=== PATIENT | male | born 1955 | race Caucasian/White ===

== ENCOUNTER 2017-04-28 10:45 | Inpatient (IN) | payer MEDICAID, OTHER ==
[~2017-04-28] VITALS: Ht 180.3 cm; Wt 96.7 kg
[2017-04-28 11:31] LABS: Basophils # (auto) 0.1 uL; Basophils % (auto) 0.4 % (0.0-2.0); Eosinophils # (auto) 0.2 uL; Eosinophils % (auto) 1.2 % (0.0-7.0); Hematocrit 41.5 % (41.0-53.0); Hemoglobin 13.8 g/dL (13.5-17.5); Lymphocytes # (auto) 1.8 uL; Lymphocytes % (auto) 12.6 % (10.0-50.0); Mean Corpuscular Hemoglobin 28.6 pg (28.0-32.0); Mean Corpuscular Hgb Conc. 33.3 g/dL (32.0-36.0); Mean Corpuscular Volume 85.9 fL (80.0-100.0); Monocytes # (auto) 1.2 uL; Monocytes % (auto) 8.2 % (0.0-12.0); Neutrophils # (auto) 10.8 uL; Neutrophils % (auto) 77.6 % (37.0-80.0); Platelet Count (auto) 268 10^3/uL (140-450); Red Blood Cells 4.83 10^6/uL (4.5-5.90); Red Cell Distribution Width 14.8 % (11.8-14.3)
[2017-04-28 11:54] LABS: Albumin 3.6 g/dL (3.4-5.0); BUN/Creatinine Ratio 21.3; Bilirubin, Total 0.8 mg/dL (0.2-1.0); Potassium 3.8 mmol/L (3.5-5.1); Total Protein 7.7 g/dL (6.4-8.2)
[2017-04-28 12:23] LABS: INR 0.95 (0.9-1.15); Partial Thromboplastin Time 29.4 sec (22.64-33.71); Prothrombin Time 10.4 sec (9.37-12.3)
[2017-04-28 12:24] LABS: Magnesium 2.4 mg/dL (1.6-2.6)
[2017-04-28] MEDS ORDERED: cefTRIAXone 1GM/10ml IVPUSH 10 ML IV ONE (12:45)
[2017-04-28] MEDS ORDERED: MORPHINE SULFATE 10 MG/ML INJ 1ML SDV IV PRN ×2 (13:00)
[2017-04-28] MEDS ORDERED: OSELTAMIVIR 75 MG CAP PO ONE (13:00)
[2017-04-28] MEDS ORDERED: ALBUTEROL SULF 2.5 MG/0.5ML(0.5%) NEB SOLN NEB PRN (13:00)
[2017-04-28] MEDS ORDERED: LORazepam 0.5 MG TAB PO PRN (13:00)
[2017-04-28] MEDS ORDERED: ACETAMINOPHEN 500 MG TAB PO PRN (13:00)
[2017-04-28] MEDS ORDERED: ONDANSETRON HCL 4 MG/2 ML VIAL IV ONE (13:00)
[2017-04-28] MEDS ORDERED: TEMAZEPAM 15 MG CAP PO PRN (13:00)
[2017-04-28] MEDS ORDERED: HYDROcodone-ACET 5/325MG TAB PO PRN (13:00)
[2017-04-28] MEDS ORDERED: MORPHINE SULFATE 10 MG/ML INJ 1ML SDV IV ONE (13:00)
[2017-04-28] MEDS ORDERED: NITROGLYCERIN 0.4 MG SL TAB SL PRN (13:00)
[2017-04-28] MEDS ORDERED: ASPirin 81 mg TAB PO ONE ×2 (13:00→13:30)
[2017-04-28] MEDS ORDERED: DEXTROSE (50%) 50ML SYRG IV PRN (13:00)
[2017-04-28] MEDS ORDERED: PROMETHAZINE HCL 25 MG/ML 1ML IV PRN (13:00)
[2017-04-28] MEDS ORDERED: LACTULOSE 20Gm/30ML SOLN PO PRN (13:00)
[2017-04-28] MEDS ORDERED: ENOXAPARIN SOD 40 MG/0.4 ML SYRINGE SC ONE (13:30)
[2017-04-28] MEDS ORDERED: NITROGLYCERIN 0.2MG/HR TOPICAL PATCH TD ONE (13:30)
[2017-04-28] MEDS ORDERED: CARVEDILOL 3.125 MG TAB PO ONE (13:30)
[2017-04-28] MEDS ORDERED: ENALAPRIL MALEATE 2.5 MG TAB PO ONE (13:30)
[2017-04-28] MEDS ORDERED: POTASSIUM CHL 20 Meq TABLET PO ONE (13:30)
[2017-04-28] MEDS ORDERED: FUROSEMIDE 40 MG/4 ML VIAL IV ONE (13:30)
[2017-04-28] MEDS: SODIUM CHLOR 0.9% PF (SALINE LOCK) 10ML VIAL IV SCH ×2 (14:00→22:18)
[2017-04-28] MEDS: ACCU-CHEK COMFORT CURVE STRIP VI SCH ×2 (16:34→22:16)
[2017-04-28] MEDS: InsuLIN REG 1unit/0.01ml Soln (100units/ml) SC SCH ×2 (16:35→22:16)
[2017-04-28] MEDS: ALBUTEROL SULF 2.5 MG/0.5ML(0.5%) NEB SOLN NEB SCH (18:25)
[2017-04-28] MEDS ORDERED: OSELTAMIVIR 75 MG CAP PO SCH (22:00)
[2017-04-28] MEDS: ATORVASTATIN 20 MG TAB PO SCH (22:16)
[2017-04-28] MEDS: POTASSIUM CHL 20 Meq TABLET PO SCH (22:16)
[2017-04-28] MEDS: CARVEDILOL 3.125 MG TAB PO SCH (22:17)
[2017-04-28] MEDS: FUROSEMIDE 40 MG/4 ML VIAL IV SCH (22:18)
[2017-04-29 02:32] VITALS: BP 125/79
[2017-04-29] MEDS: InsuLIN REG 1unit/0.01ml Soln (100units/ml) SC SCH ×4 (06:26→22:00)
[2017-04-29] MEDS: ACCU-CHEK COMFORT CURVE STRIP VI SCH ×4 (06:27→22:00)
[2017-04-29] MEDS: ALBUTEROL SULF 2.5 MG/0.5ML(0.5%) NEB SOLN NEB SCH ×3 (06:31→19:05)
[2017-04-29 06:33] LABS: Basophils # (auto) 0.1 uL; Basophils % (auto) 0.7 % (0.0-2.0); Eosinophils # (auto) 0.2 uL; Eosinophils % (auto) 1.7 % (0.0-7.0); Hematocrit 38.7 % (41.0-53.0); Hemoglobin 12.9 g/dL (13.5-17.5); Lymphocytes # (auto) 2.8 uL; Lymphocytes % (auto) 22.1 % (10.0-50.0); Mean Corpuscular Hemoglobin 28.9 pg (28.0-32.0); Mean Corpuscular Hgb Conc. 33.4 g/dL (32.0-36.0); Mean Corpuscular Volume 86.5 fL (80.0-100.0); Monocytes # (auto) 1.3 uL; Monocytes % (auto) 10.2 % (0.0-12.0); Neutrophils # (auto) 8.4 uL; Neutrophils % (auto) 65.3 % (37.0-80.0); Nucleated Red Blood Cells % 0.1 %; Platelet Count (auto) 253 10^3/uL (140-450); Red Blood Cells 4.48 10^6/uL (4.5-5.90); Red Cell Distribution Width 14.8 % (11.8-14.3); White Blood Cell 12.9 10^3/uL (4.4-10.8)
[2017-04-29 07:03] LABS: Albumin 3.1 g/dL (3.4-5.0); BUN/Creatinine Ratio 17.1; Calcium 8.3 mg/dL (8.5-10.1); Potassium 3.9 mmol/L (3.5-5.1); Total Protein 7.1 g/dL (6.4-8.2)
[2017-04-29] MEDS: CARVEDILOL 3.125 MG TAB PO SCH ×2 (09:58→22:00)
[2017-04-29] MEDS: ENALAPRIL MALEATE 2.5 MG TAB PO SCH (09:58)
[2017-04-29] MEDS ORDERED: ASPirin 81 mg TAB PO SCH (10:00)
[2017-04-29] MEDS ORDERED: NITROGLYCERIN 0.2MG/HR TOPICAL PATCH TD SCH (10:00)
[2017-04-29] MEDS: ENOXAPARIN SOD 40 MG/0.4 ML SYRINGE SC SCH (10:03)
[2017-04-29] MEDS: POTASSIUM CHL 20 Meq TABLET PO SCH ×2 (10:03→22:00)
[2017-04-29] MEDS: SODIUM CHLOR 0.9% PF (SALINE LOCK) 10ML VIAL IV SCH ×3 (10:03→22:00)
[2017-04-29] MEDS: ASPirin 81 mg TAB PO SCH (10:03)
[2017-04-29] MEDS: cefTRIAXone 1GM/10ml IVPUSH 10 ML IV SCH (10:04)
[2017-04-29] MEDS: FUROSEMIDE 40 MG/4 ML VIAL IV SCH ×2 (10:04→22:00)
[2017-04-29] MEDS: AZITHROMYCIN 500MG/ 250ML 250 ML IV SCH (10:12)
[2017-04-29 11:41] LABS: Urine Bacteria NONE SEEN /hpf (None Seen); Urine Blood TRACE /uL (Negative); Urine Specific Gravity 1.009 (1.001-1.035); Urine WBC <1 /hpf (0 - 3)
[2017-04-29 12:12] LABS: Alcohol, Urine < 3.0 mg/dL (0-5); Amphetamine Screen, Urine NEGATIVE (NEGATIVE); Barbiturate Scree,Urine NEGATIVE (NEGATIVE); Benzodiazephine Screen, Urine NEGATIVE (NEGATIVE); Cannabinoid Screen, Urine NEGATIVE (NEGATIVE); Cocaine Screen, Urine NEGATIVE (NEGATIVE); Opiate Scree,Urine NEGATIVE (NEGATIVE); Phencyclidine Screen, Urine NEGATIVE (NEGATIVE)
[2017-04-29] MEDS: ATORVASTATIN 20 MG TAB PO SCH (22:00)
[2017-04-30] MEDS: ALBUTEROL SULF 2.5 MG/0.5ML(0.5%) NEB SOLN NEB SCH ×4 (00:31→19:26)
[2017-04-30 03:43] LABS: Basophils # (auto) 0.2 uL; Basophils % (auto) 1.8 % (0.0-2.0); Eosinophils # (auto) 0.3 uL; Hematocrit 39.6 % (41.0-53.0); Hemoglobin 13.3 g/dL (13.5-17.5); Lymphocytes # (auto) 1.9 uL; Lymphocytes % (auto) 17.7 % (10.0-50.0); Mean Corpuscular Hemoglobin 28.9 pg (28.0-32.0); Mean Corpuscular Hgb Conc. 33.7 g/dL (32.0-36.0); Mean Corpuscular Volume 85.8 fL (80.0-100.0); Monocytes # (auto) 0.9 uL; Monocytes % (auto) 8.6 % (0.0-12.0); Neutrophils # (auto) 7.5 uL; Neutrophils % (auto) 68.9 % (37.0-80.0); Nucleated Red Blood Cells % 0.1 %; Platelet Count (auto) 256 10^3/uL (140-450); Red Blood Cells 4.61 10^6/uL (4.5-5.90); Red Cell Distribution Width 15.2 % (11.8-14.3); White Blood Cell 10.9 10^3/uL (4.4-10.8)
[2017-04-30 03:57] LABS: BUN/Creatinine Ratio 20.7; Calcium 8.5 mg/dL (8.5-10.1); Magnesium 2.3 mg/dL (1.6-2.6); Potassium 3.9 mmol/L (3.5-5.1)
[2017-04-30] MEDS: SODIUM CHLOR 0.9% PF (SALINE LOCK) 10ML VIAL IV SCH ×3 (06:00→22:00)
[2017-04-30] MEDS: InsuLIN REG 1unit/0.01ml Soln (100units/ml) SC SCH ×4 (07:00→22:00)
[2017-04-30] MEDS: ACCU-CHEK COMFORT CURVE STRIP VI SCH ×4 (07:14→22:00)
[2017-04-30 08:24] VITALS: BP 129/80
[2017-04-30] MEDS ORDERED: INFLUENZA QUAD 2017-2018 0.5 ML SYRG IM ONE (08:45)
[2017-04-30] MEDS ORDERED: PNEUMOCOCCAL VACC POLYS 25 MCG/0.5 ML VIAL IM ONE (08:45)
[2017-04-30] MEDS ORDERED: LISI40TA PO (08:47)
[2017-04-30] MEDS ORDERED: GABA300C10 PO (08:47)
[2017-04-30] MEDS ORDERED: METF-370 PO (08:47)
[2017-04-30] MEDS ORDERED: ASPI81TA27 PO (08:47)
[2017-04-30 09:00] VITALS: BP 129/81
[2017-04-30] MEDS: FUROSEMIDE 40 MG/4 ML VIAL IV SCH ×2 (10:08→23:21)
[2017-04-30] MEDS: cefTRIAXone 1GM/10ml IVPUSH 10 ML IV SCH (10:08)
[2017-04-30] MEDS: CARVEDILOL 3.125 MG TAB PO SCH ×2 (10:09→23:22)
[2017-04-30] MEDS: AZITHROMYCIN 500MG/ 250ML 250 ML IV SCH (10:09)
[2017-04-30] MEDS: POTASSIUM CHL 20 Meq TABLET PO SCH ×2 (10:09→23:21)
[2017-04-30] MEDS: ASPirin 81 mg TAB PO SCH (10:09)
[2017-04-30] MEDS: ENOXAPARIN SOD 40 MG/0.4 ML SYRINGE SC SCH (10:10)
[2017-04-30] MEDS: ENALAPRIL MALEATE 2.5 MG TAB PO SCH (10:10)
[2017-04-30 13:00] VITALS: BP 107/54
[2017-04-30] MEDS ORDERED: ADENOSINE 93 MG in GIVE UN-DILUTED 0 ML IV ONE (13:15)
[2017-04-30] MEDS ORDERED: ATOR20TA PO (13:16)
[2017-04-30 13:36] VITALS: BP 106/70
[2017-04-30 17:00] VITALS: BP 102/50
[2017-04-30] MEDS: ATORVASTATIN 20 MG TAB PO SCH (22:00)
[2017-04-30 22:24] VITALS: BP 123/56
[2017-05-01] MEDS: ALBUTEROL SULF 2.5 MG/0.5ML(0.5%) NEB SOLN NEB SCH ×5 (01:08→22:58)
[2017-05-01] MEDS ORDERED: ALBUTEROL SULF 2.5 MG/0.5ML(0.5%) NEB SOLN NEB PRN (03:15)
[2017-05-01 05:27] VITALS: BP 125/60
[2017-05-01] MEDS: ACCU-CHEK COMFORT CURVE STRIP VI SCH ×4 (06:29→22:00)
[2017-05-01] MEDS: SODIUM CHLOR 0.9% PF (SALINE LOCK) 10ML VIAL IV SCH ×3 (06:29→22:00)
[2017-05-01] MEDS: IPRATROPIUM BROM 0.5 MG/2.5ML INH SOL NEB SCH ×4 (06:38→22:57)
[2017-05-01] MEDS: InsuLIN REG 1unit/0.01ml Soln (100units/ml) SC SCH ×4 (06:52→22:00)
[2017-05-01 07:15] LABS: Basophils # (auto) 0.1 uL; Basophils % (auto) 0.6 % (0.0-2.0); Eosinophils # (auto) 0.5 uL; Eosinophils % (auto) 3.6 % (0.0-7.0); Hematocrit 39.4 % (41.0-53.0); Hemoglobin 13.3 g/dL (13.5-17.5); Lymphocytes # (auto) 2.5 uL; Lymphocytes % (auto) 18.6 % (10.0-50.0); Mean Corpuscular Hgb Conc. 33.9 g/dL (32.0-36.0); Mean Corpuscular Volume 85.6 fL (80.0-100.0); Monocytes # (auto) 1.1 uL; Monocytes % (auto) 8.4 % (0.0-12.0); Neutrophils # (auto) 9.1 uL; Neutrophils % (auto) 68.8 % (37.0-80.0); Nucleated Red Blood Cells % 0.1 %; Platelet Count (auto) 300 10^3/uL (140-450); Red Cell Distribution Width 14.7 % (11.8-14.3); White Blood Cell 13.2 10^3/uL (4.4-10.8)
[2017-05-01 07:31] LABS: Potassium 4.3 mmol/L (3.5-5.1)
[2017-05-01 09:00] VITALS: BP 131/71
[2017-05-01] MEDS: CARVEDILOL 3.125 MG TAB PO SCH ×2 (09:14→23:15)
[2017-05-01] MEDS: FUROSEMIDE 40 MG/4 ML VIAL IV SCH ×2 (09:14→23:15)
[2017-05-01] MEDS: POTASSIUM CHL 20 Meq TABLET PO SCH ×2 (09:14→23:13)
[2017-05-01] MEDS: ASPirin 81 mg TAB PO SCH (09:15)
[2017-05-01] MEDS: cefTRIAXone 1GM/10ml IVPUSH 10 ML IV SCH (09:15)
[2017-05-01] MEDS: ENALAPRIL MALEATE 2.5 MG TAB PO SCH (09:15)
[2017-05-01] MEDS: AZITHROMYCIN 500MG/ 250ML 250 ML IV SCH (09:16)
[2017-05-01] MEDS: ENOXAPARIN SOD 40 MG/0.4 ML SYRINGE SC SCH (09:16)
[2017-05-01 13:00] VITALS: BP 118/64
[2017-05-01] MEDS: NICOTINE 21MG/24 HR TOPICAL PATCH TD SCH (16:33)
[2017-05-01 17:00] VITALS: BP 133/67
[2017-05-01 20:22] VITALS: BP 114/58
[2017-05-01 20:29] VITALS: BP 133/67
[2017-05-01] MEDS: ATORVASTATIN 20 MG TAB PO SCH (23:11)
[2017-05-02 05:47] VITALS: BP 103/45
[2017-05-02] MEDS: SODIUM CHLOR 0.9% PF (SALINE LOCK) 10ML VIAL IV SCH ×2 (06:00→13:19)
[2017-05-02] MEDS: IPRATROPIUM BROM 0.5 MG/2.5ML INH SOL NEB SCH ×2 (06:49→11:53)
[2017-05-02] MEDS: ALBUTEROL SULF 2.5 MG/0.5ML(0.5%) NEB SOLN NEB SCH ×2 (06:49→11:53)
[2017-05-02] MEDS: ACCU-CHEK COMFORT CURVE STRIP VI SCH ×3 (06:58→17:10)
[2017-05-02] MEDS: InsuLIN REG 1unit/0.01ml Soln (100units/ml) SC SCH ×3 (06:58→17:10)
[2017-05-02 09:00] VITALS: BP 127/52
[2017-05-02] MEDS: cefTRIAXone 1GM/10ml IVPUSH 10 ML IV SCH (09:36)
[2017-05-02] MEDS: ASPirin 81 mg TAB PO SCH (09:37)
[2017-05-02] MEDS: AZITHROMYCIN 500MG/ 250ML 250 ML IV SCH (09:37)
[2017-05-02] MEDS: FUROSEMIDE 40 MG/4 ML VIAL IV SCH (09:37)
[2017-05-02] MEDS: CARVEDILOL 3.125 MG TAB PO SCH (09:38)
[2017-05-02] MEDS: POTASSIUM CHL 20 Meq TABLET PO SCH (09:38)
[2017-05-02] MEDS: ENALAPRIL MALEATE 2.5 MG TAB PO SCH (09:39)
[2017-05-02] MEDS: ENOXAPARIN SOD 40 MG/0.4 ML SYRINGE SC SCH (09:39)
[2017-05-02] MEDS: NICOTINE 21MG/24 HR TOPICAL PATCH TD SCH (09:39)
[2017-05-02 13:00] VITALS: BP 100/53
[2017-05-02 17:00] VITALS: BP 112/53
== END 2017-05-02 18:40 | disposition home or self-care (01) | DRG 190 ==
LOC: ER 10:45 → TELE 10:46 → TELE-EAST 04-30 07:43
PROVIDERS: ADMIT Internal Medicine; ATTEND Internal Medicine
DX: I21.4 Non-ST elevation (NSTEMI) myocardial infarction (principal); J96.90 Respiratory failure, unspecified, unspecified whether with hypoxia or hypercapnia; I50.43 Acute on chronic combined systolic (congestive) and diastolic (congestive) heart failure; J18.1 Lobar pneumonia, unspecified organism; I11.0 Hypertensive heart disease with heart failure; E11.9 Type 2 diabetes mellitus without complications; J44.0 Chronic obstructive pulmonary disease with (acute) lower respiratory infection; G62.9 Polyneuropathy, unspecified; E78.5 Hyperlipidemia, unspecified; F15.10 Other stimulant abuse, uncomplicated; F17.210 Nicotine dependence, cigarettes, uncomplicated; I25.10 Atherosclerotic heart disease of native coronary artery without angina pectoris; J44.1 Chronic obstructive pulmonary disease with (acute) exacerbation; Z82.49 Family history of ischemic heart disease and other diseases of the circulatory system; Z23 Encounter for immunization
CPT/HCPCS: 36415; 71045; 78452; 80048; 80053; 80061; 80307; 81001; 82550; 82565; 82962; 83036; 83605; 83735; 83880; 84132; 84484; 85025; 85610; 85652; 85730; 86141; 87040; 87400; 93005; 93017; 93306; 94640; 94761; J0153; J1815; J2405

== ENCOUNTER 2021-08-09 11:11 | Observation (INO) | payer MEDICAID, OTHER ==
[~2021-08-09] VITALS: Ht 182.9 cm; Wt 103.6 kg
[~2021-08-09 11:11] MED LIST: AMIO200T33 PO; ASPI-543 PO; ATOR20TA PO; CEFA500C PO; CLIN300C8 PO; FURO1TAB31 PO; GABA300C10 PO; LEVO500T31 PO; LISI40TA11 PO; METO25TA5 PO; OXY5T PO; PANT40TA2 PO; SACC250C PO
[2021-08-09] MEDS ORDERED: ALPRAZolam 0.5 MG TAB PO ONE (12:15)
[2021-08-09 12:35] LABS: BUN/Creatinine Ratio 25.6; Calcium 8.4 mg/dL (8.5-10.1)
[2021-08-09 12:36] LABS: Basophils # (auto) 0 10 ^3/uL (0-0.2); Basophils % (auto) 0.2 % (0.0-2.0); Eosinophils # (auto) 0 10 ^3/uL (0-0.8); Eosinophils % (auto) 0.1 % (0.0-7.0); Hematocrit 38.1 % (41.0-53.0); Lymphocytes # (auto) 0.7 10 ^3/uL (0.4-5.4); Lymphocytes % (auto) 4.5 % (10.0-50.0); Mean Corpuscular Hemoglobin 29.2 pg (28.0-32.0); Mean Corpuscular Hgb Conc. 34.1 g/dL (32.0-36.0); Mean Corpuscular Volume 85.8 fL (80.0-100.0); Monocytes # (auto) 0.5 10 ^3/uL (0-1.3); Monocytes % (auto) 3.2 % (0.0-12.0); Neutrophils # (auto) 13.9 10 ^3/uL (1.6-8.6); Nucleated Red Blood Cells % 0.1 %; Red Blood Cells 4.44 10^6/uL (4.5-5.90); Red Cell Distribution Width 16.2 % (11.8-14.3); White Blood Cell 15.1 10^3/uL (4.4-10.8)
[2021-08-09 12:38] LABS: Bilirubin, Total 0.7 mg/dL (0.2-1.0); Total Protein 6.4 g/dL (6.4-8.2)
[2021-08-09] MEDS ORDERED: ASPirin 81 mg TAB PO ONE (13:15)
[2021-08-09] MEDS ORDERED: SODIUM CHLORIDE 0.9% 500 ML IV ONE (13:30)
[2021-08-09] MEDS ORDERED: SODIUM CHLORIDE 0.9% 1,000 ML IV ONE (13:30)
[2021-08-09 14:10] LABS: INR 0.99 (0.9-1.15)
[2021-08-09] MEDS ORDERED: FUROSEMIDE 40 MG/4 ML VIAL IV ONE (14:15)
[2021-08-09] MEDS ORDERED: NITROGLYCERIN 0.4 MG SL TAB SL PRN (16:15)
[2021-08-09] MEDS ORDERED: MORPHINE SULFATE INJ 2 MG/ml SYRG IV PRN (16:15)
[2021-08-09] MEDS ORDERED: DEXTROSE (50%) 50ML SYRG IV ONE (21:45)
[2021-08-09 22:00] VITALS: BP 125/64
[2021-08-09] MEDS ORDERED: GABAPENTIN 300 MG CAP PO SCH (22:00)
[2021-08-09] MEDS ORDERED: ATORVASTATIN 20 MG TAB PO SCH (22:00)
[2021-08-09 23:46] VITALS: BP 125/64
[2021-08-09] MEDS: APIXABAN 2.5 MG TAB PO SCH (23:48)
[2021-08-09] MEDS: AMIODARONE HCL 200 MG TAB PO SCH (23:48)
[2021-08-09] MEDS: METOPROLOL TARTRATE 25 MG TAB PO SCH (23:49)
[2021-08-09] MEDS: FUROSEMIDE 20 MG/2 ML VIAL IV SCH (23:49)
[2021-08-09] MEDS: ACCU-CHEK COMFORT CURVE STRIP VI SCH (23:50)
[2021-08-10] MEDS: InsuLIN REG 1unit/0.01ml Soln (100units/ml) SC SCH ×3 (00:11→11:21)
[2021-08-10] MEDS ORDERED: DEXTROSE (50%) 50ML SYRG IV PRN (00:15)
[2021-08-10] MEDS ORDERED: SEMA4INJ SC (00:24)
[2021-08-10] MEDS ORDERED: INSLANTI SC (00:24)
[2021-08-10] MEDS ORDERED: AMLO-489 PO (00:24)
[2021-08-10] MEDS ORDERED: CINN500C7 PO (00:24)
[2021-08-10] MEDS ORDERED: MILK150C PO (00:24)
[2021-08-10] MEDS ORDERED: EMPA1TAB PO (00:24)
[2021-08-10] MEDS ORDERED: ALPRAZolam 0.5 MG TAB PO PRN (02:45)
[2021-08-10] MEDS ORDERED: PROMETHAZINE W/CODEINE 5 ML ORAL SYRUP PO PRN (04:45)
[2021-08-10 05:00] VITALS: BP_SYST 110; BP_SYST 87; BP_DIAS 57; BP_DIAS 74
[2021-08-10 05:10] VITALS: BP 110/74
[2021-08-10 05:25] LABS: Hematocrit 36.2 % (41.0-53.0); Hemoglobin 12.2 g/dL (13.5-17.5); Mean Corpuscular Hemoglobin 29.2 pg (28.0-32.0); Mean Corpuscular Hgb Conc. 33.7 g/dL (32.0-36.0); Mean Corpuscular Volume 86.5 fL (80.0-100.0); Red Blood Cells 4.19 10^6/uL (4.5-5.90); Red Cell Distribution Width 16.2 % (11.8-14.3); White Blood Cell 15.5 10^3/uL (4.4-10.8)
[2021-08-10 05:44] LABS: Calcium 8.4 mg/dL (8.5-10.1); Potassium 4.4 mmol/L (3.5-5.1)
[2021-08-10] MEDS: ACCU-CHEK COMFORT CURVE STRIP VI SCH ×2 (06:41→11:21)
[2021-08-10 08:00] VITALS: BP 105/57
[2021-08-10 09:00] VITALS: BP 105/57
[2021-08-10] MEDS: FUROSEMIDE 20 MG/2 ML VIAL IV SCH (09:15)
[2021-08-10] MEDS: AMIODARONE HCL 200 MG TAB PO SCH (09:16)
[2021-08-10] MEDS: APIXABAN 2.5 MG TAB PO SCH (09:16)
[2021-08-10] MEDS: METOPROLOL TARTRATE 25 MG TAB PO SCH (09:18)
[2021-08-10] MEDS ORDERED: FLORASTOR (S. BOULARDII) 250 MG CAP PO SCH (10:00)
[2021-08-10] MEDS ORDERED: PANTOPRAZOLE 40 MG TAB PO SCH (10:00)
[2021-08-10] MEDS ORDERED: LISINOPRIL 20 MG TAB PO SCH (10:00)
[2021-08-10] MEDS ORDERED: ASPirin-EC 81 mg tab PO SCH (10:00)
[2021-08-10] MEDS ORDERED: FURO1TAB33 PO (10:58)
[2021-08-10] MEDS ORDERED: LISI20TA28 PO (11:00)
[2021-08-10] MEDS ORDERED: APIX2.5T PO (11:00)
[2021-08-10 12:45] VITALS: BP 105/57
== END 2021-08-10 13:40 | disposition home or self-care (01) ==
LOC: ER 11:11 → TELE 16:09 → TELE-CENTR 21:48
PROVIDERS: ADMIT Hospitalist; ATTEND Hospitalist
DX: I13.0 Hypertensive heart and chronic kidney disease with heart failure and stage 1 through stage 4 chronic kidney disease, or unspecified chronic kidney disease (principal); Z20.822 Contact with and (suspected) exposure to COVID-19; E11.22 Type 2 diabetes mellitus with diabetic chronic kidney disease; N18.31 Chronic kidney disease, stage 3a; I50.21 Acute systolic (congestive) heart failure; G92.8 Other toxic encephalopathy; J44.9 Chronic obstructive pulmonary disease, unspecified; I73.9 Peripheral vascular disease, unspecified; I21.A1 Myocardial infarction type 2; I48.0 Paroxysmal atrial fibrillation; I25.10 Atherosclerotic heart disease of native coronary artery without angina pectoris; E78.5 Hyperlipidemia, unspecified; D72.829 Elevated white blood cell count, unspecified; I25.5 Ischemic cardiomyopathy; D68.59 Other primary thrombophilia; T42.4X5A Adverse effect of benzodiazepines, initial encounter; I77.810 Thoracic aortic ectasia; F15.10 Other stimulant abuse, uncomplicated; F17.210 Nicotine dependence, cigarettes, uncomplicated; Z91.19 Patient's noncompliance with other medical treatment and regimen; Z95.1 Presence of aortocoronary bypass graft; Z79.899 Other long term (current) drug therapy
CPT/HCPCS: 36415; 70450; 71045; 80048; 80053; 80320; 82962; 83880; 84443; 84484; 85025; 85027; 85379; 85610; 87081; 87426; 93005; 93306; 96372; 96374; 96376; 99285; G0378; J1815; J1940